=== PATIENT | female | born 1950 | race African-American/Black ===

== ENCOUNTER 2023-08-25 17:21 | Emergency (ER) | payer OTHER, MEDICAID ==
[~2023-08-25] VITALS: Ht 167.6 cm; Wt 100.0 kg
[2023-08-25 17:55] VITALS: O2SAT 100
[2023-08-25] MEDS ORDERED: KETOROLAC 30MG/ML VIAL IM ONE (19:30)
[2023-08-25 21:00] VITALS: BP 117/51
[2023-08-25] MEDS ORDERED: LIDO700A15 TP (22:22)
[2023-08-25] MEDS ORDERED: NAPR-1176 MT (22:22)
[2023-08-25 22:40] VITALS: PULSE 57; RESP 16; TEMP 98.6
== END 2023-08-25 22:41 | disposition home or self-care (01) ==
LOC: ER 17:21
DX: M48.061 Spinal stenosis, lumbar region without neurogenic claudication (principal); I10 Essential (primary) hypertension
CPT/HCPCS: 99285; 72131; 96372; J1885